=== PATIENT | male | born 2000 | race Two or more races ===

== ENCOUNTER 2025-01-04 07:39 | Emergency (ER) | payer MEDICAID, SELFPAY ==
[2025-01-04 07:46] VITALS: BP 142/83; PULSE 63; RESP 17; TEMP 36.6; O2SAT 97; BMI 29.5
--- NOTE | 2025-01-04 07:48 | XR_ITS ---
Examination: Hand, right 3 views Technique: Hand AP, oblique, lateral 3 views Date and time of exam: January 04, 2025, 0748 hours INDICATIONS: Punching injury to the hand today, hand pain. FINDINGS: Acute fracture base fifth metacarpal, comminuted without significant displacement No foreign body IMPRESSION: Acute comminuted fracture base fifth metacarpal
--- NOTE | 2025-01-04 07:52 | EDNOTE_ITS ---
<Statement entered by Amberly Dudley MD - 01/04/25 16:23> As co-signing physician, I was present and available for consult prn. I concur with the plan and care as documented by the midlevel provider. Upper Extremity Injury RME/HPI General Chief Complaint: Hand/Wrist Problems Stated Complaint: right hand pain, punched a pole Time Seen by Provider: 01/04/25 07:43 Arrival date/time: 01/04/25 07:39 24-year-old male presents to the emergency department today stating that he punched a pole this morning patient reports he has anger issues as angry this morning punched a pole Limitations: no limitations Related Data Previous Rx's ?Medication ?Instructions ?Recorded cephalexin 500 mg capsule (Keflex) 500 mg PO BID #14 c aps 08/09/19 ibuprofen 600 mg tablet 600 mg PO Q6H #30 tabs 08/08 mupirocin 2 % topical ointment 1 applic topical BID #2 2 grams 10/15/20 sulfamethoxazole 800 1 tab PO BID #10 tabs mg-trimethoprim 160 mg tablet (Bactrim DS) IBU 800 mg tablet (ibuprofen) 800 mg PO Q6H PRN pain # 30 tabs 06/17/21 amoxicillin 875 mg-potassium 1 tab PO Q12H #20 tabs clavulanate 125 mg tablet hydrocodone 5 mg-acetaminophen 325 1 tab PO BID PRN pa in #10 tabs 01/04/25 mg tablet ibuprofen 800 mg tablet 800 mg PO TID PRN pain #30 t abs 01/04/25 Allergies Allergy/AdvReac Type Severity Reaction Status Date / Time No Known Allergies Allergy Verified 01/04/25 07:42 Review of Systems Review of Systems Systems Reviewed: All systems reviewed, normal except as documented Constitutional Constitutional: Reports system reviewed and no additional complaints, except as documented, Denies fever(s) and Denies headache(s) Eyes Eyes: Reports system reviewed and no additional complaints, except as documented and Denies blurry vision ENT Ears, Nose, Mouth, and Throat: Reports system reviewed and no additional complaints, except as documented, Denies headache(s), Denies nasal congestion and Denies nasal discharge Cardiovascular Cardiovascular: Reports system reviewed and no additional complaints, except as documented, Denies chest pain and Denies dyspnea Respiratory Respiratory: Reports system reviewed and no additional complaints, except as documented, Denies chest congestion, Denies cough and Denies dyspnea Gastrointestinal Gastrointestinal: Reports system reviewed and no additional complaints, except as documented and Denies abdominal pain Musculoskeletal Musculoskeletal: Reports system reviewed and no additional complaints, except as documented and Reports joint swelling (Swelling right hand) Integumentary/Breasts Skin/Breast: Reports system reviewed and no additional complaints, except as documented, Denies rash and Reports wounds (Abrasion right hand) Neurologic Neurologic: Reports system reviewed and no additional complaints, except as documented, Reports as per HPI and Denies headache(s) Past Medical History Past Medical History CARDIAC: Negative Cardiac Disorders or Congestive Heart Failure RESPIRATORY: Negative Chronic Obstructive Pulmonary Disease (COPD) or Asthma GENITOURINARY: Negative Renal Disease ENDOCRINE: Negative Diabetes Mellitus Type 1 or Diabetes Mellitus Type 2 HEMATOLOGIC: Negative Sickle Cell Disease Social History SMOKING STATUS: Current every day smoker SUBSTANCE USE: marijuana ED Exam General Limitations: Present no limitations General appearance: Present alert and in no apparent distress Head Head exam: Present atraumatic, normocephalic and normal inspection Eye Eye exam: Present normal appearance, PERRL and EOMI ENT ENT exam: Present normal exam, normal oropharynx and mucous membranes moist Neck Neck exam: Present normal inspection, full ROM and trachea midline Chest Chest inspection: Present normal inspection and symmetric chest wall rise Respiratory Respiratory exam: Present normal lung sounds bilaterally Cardiovascular Cardiovascular exam: Present regular rate, normal rhythm and normal heart sounds Abdominal Exam Abdominal exam: Present soft and normal bowel sounds Extremities Exam Extremities exam: Present full ROM, tenderness, normal capillary refill and joint swelling (Swelling right hand right fifth metacarpal) Back Exam Back exam: Present normal inspection and full ROM Neurological Exam Neurological exam: Present alert, oriented X3 and CN II-XII intact Psychiatric Psychiatric exam: Present normal affect and normal mood Skin Skin exam: Present warm, dry and other (Abrasion right hand) Course Quality Measures none Orders Category Date Time Status Splint / Immobilizer STAT Care 01/04/25 08:15 Completed Wound Care NOW Care 01/04/25 07:48 Completed XR hand comp RT min 3V Stat Exams 01/04/25 07:48 Completed Ibuprofen Tab [Motrin Tab] Med 01/04/25 07:48 Discontinued 800 mg PO X1 ONE TET,DIP/PERT AC (Adult)-Tdap [Boostrix Adult (Tdap) Med 01/04/25 07:48 Discontinued Vacc] 0.5 ml IMI .ONCE ONE Vital Signs Vital signs: Vital Signs Temperature 97.9 F 01/04/25 07:46 Pulse Rate 63 01/04/25 07:46 Respiratory Rate 17 01/04/25 07:46 Blood Pressure 142/83 H 01/04/25 07:46 Pulse Oximetry (%) 97 01/04/25 07:46 Oxygen Delivery Method Room Air 01/04/25 07:46 O2 saturation 97% room air within normal limits Extremity Injury MDM Narrative MDM Narrative:: 24-year-old male presents to the emergency department today stating that he punched a pole this morning patient reports he has anger issues as angry this morning punched a pole On exam patient has swelling right hand dorsal aspect. I suspect patient has a boxer's fracture X-ray obtained consistent with boxer's fracture Patient does have abrasions of the hand Wound care completed patient given tetanus and ibuprofen Patient placed in splint Patient struck to follow-up with orthopedist soon as possible for worsening symptoms return immediately Patient data External records reviewed:: [facility] previous records Clinical information provided by:: patient Social determinants that could affect healthcare access:: none Patient has the following chronic illnesses:: See history How is presenting disease/condition affected by chronic disease/condition?: caused by Evaluation data The following diagnostics were reviewed and interpreted by me:: radiology exam(s) Lab and/or radiology exams considered but not ordered:: Radiology obtained Interpretation Summary: Reviewed by me Medications / Prescriptions Medications or Prescriptions considered but not ordered:: Given Medication administrations:: Medication Administration History Discontinued Medications Diphtheria/Tetanus/Acell Pertussis (Diphth,Pertuss(Acell),Tet Vac 0.5 Ml Syr- Adult) 0.5 ml IMi .ONCE ONE Stop: 01/04/25 07:49 Last Admin: 01/04/25 08:08 Dose: Not Given Documented By: [facility] Non-Admin Reason: Patient Refused Ibuprofen (Ibuprofen Tab 400 Mg Tablet) 800 mg PO X1 ONE Stop: 01/04/25 07:49 Last Admin: 01/04/25 08:05 Dose: 800 mg Documented By: [facility] Given Consultations Consultation(s) initiated? (list below): No Diagnosis Upper Extremity Injury Differential Diagnosis: sprain and strain of wrist and fracture of hand Most likely diagnosis given after review of the tests above:: Fracture right hand Admission Indicated Admission indicated?: not indicated Admission Request Was there a request for admission?: No Disposition Plan Disposition Plan: Discharge Discharge Attestation Discharge Attestation: The patient and all family members were given an opportunity to ask questions and understood the discharge instructions. Discharge instructions specifically effects, indications for sooner follow up or return to the emergency department, and the expected course of current diagnosis. Patient condition: Stable Discharge Plan Plan Patient Disposition: HOME (Self Care) Discharge Disposition comment: Stable Prescriptions/Referrals Prescriptions/Med Rec: New hydrocodone-acetaminophen 5-325 mg tablet 1 tab PO BID MDD 10 PRN (Reason: pain) Qty: 10 0RF ibuprofen 800 mg tablet 800 mg PO TID PRN (Reason: pain) Qty: 30 0RF No Action ibuprofen 600 mg tablet 600 mg PO Q6H Qty: 30 0RF cephalexin [Keflex] 500 mg capsule 500 mg PO BID Qty: 14 0RF sulfamethoxazole-trimethoprim [Bactrim DS] 800-160 mg tablet 1 tab PO BID Qty: 10 0RF mupirocin 2 % ointment 1 applic topical BID Qty: 22 0RF ibuprofen [IBU] 800 mg tablet 800 mg PO Q6H PRN (Reason: pain) Qty: 30 0RF amoxicillin-pot clavulanate 875-125 mg tablet 1 tab PO Q12H Qty: 20 0RF Problem List Clinical Impression: Fracture of right hand Patient/Caregiver Discharge Instructions Education Materials: [facility] Additional Instructions: Please follow up with your primary care doctor in the next 24-48hrs for any worsening symptoms return here immediately Print Language: Tristanian Stand Alone Forms: Janae Award Info., Work/School Release, Patient Portal Info Letter PA/WEB PROGRAMMER Supervising Physician PA/WEB PROGRAMMER Supervising Physician: dr dudley
[2025-01-04] MEDS: IBUPROFEN TAB 400 MG TABLET 800 MG PO (08:05)
== END 2025-01-04 08:37 | disposition home or self-care (01) ==
LOC: SERX 08:19
PROVIDERS: Emergency Provider Nurse Practitioner Primary Care; PCP Family Medicine
DX: S62.316A Displaced fracture of base of fifth metacarpal bone, right hand, initial encounter for closed fracture (principal); W22.8XXA Striking against or struck by other objects, initial encounter
CPT/HCPCS: 29125; 73130; 99283; A9270